=== PATIENT | female | born 1975 | race Two or more races ===

== ENCOUNTER → 2023-09-09 | Outpatient (REF) | payer BC | LOC: M SFHCDERM 13:52 | PROVIDERS: ATTEND Nurse Practitioner Family | DX: D22.9 Melanocytic nevi, unspecified (principal) ==

== ENCOUNTER → 2023-10-01 | Outpatient (REF) | payer BC ==
[2023-10-01 18:01] LABS: FERRITIN 41.9 NG/ML (7.3-270.7)
== END ==
LOC: M LAB REF 16:41
PROVIDERS: ATTEND Nurse Practitioner Family
DX: R53.83 Other fatigue (principal)

== ENCOUNTER → 2024-04-19 | Outpatient (REF) | payer BC ==
[2024-04-21 16:22] LABS: HPV APTIMA Not Detected (Not Detected)
== END ==
LOC: M SFHCWAGY 15:06
PROVIDERS: ATTEND Advanced Practice Midwife
DX: Z12.4 Encounter for screening for malignant neoplasm of cervix (principal)

== ENCOUNTER → 2024-04-20 | Outpatient (CLI) | payer BC ==
[2024-04-20 11:41] LABS: FOLLICLE STIMULATING HORMONE 47.7 mIU/ML; LUTEINIZING HORMONE 43.9 mIU/ML; PROLACTIN 6.52 NG/ML
[2024-04-20 11:42] LABS: ESTRADIOL 21.1 PG/ML
[2024-04-21 11:32] LABS: DEHYDROEPIANDROSTERONE SULFATE 181 mcg/dL (15-205)
== END ==
LOC: M PLALAB 08:09
PROVIDERS: ATTEND Advanced Practice Midwife
DX: L68.0 Hirsutism (principal)